=== PATIENT | female | born 1970 | race Caucasian/White ===

== ENCOUNTER → 2020-03-03 | Outpatient (CLI) | payer OTHER ==
[~2020-03-03] MED LIST: FISH OIL PO; HYDR-3240 PO; LOSARTAN PO; VITAMIN B12 PO
== END | disposition home or self-care (01) ==
LOC: CVU 07:03
PROVIDERS: ATTEND Family Medicine
DX: I10 Essential (primary) hypertension (principal)
CPT/HCPCS: 93306; 93356